=== PATIENT | female | born 1980 | race Caucasian/White ===

== ENCOUNTER 2018-02-26 00:12 | Emergency (ER) | payer BC ==
[~2018-02-26] VITALS: Ht 162.6 cm; Wt 77.1 kg
[~2018-02-26 00:12] MED LIST: DOXYCYCLINE 10100 MG PO; LEXAPRO 10 MG T10 M1; NABUMETONE 500500 M1; VERAPAMIL ER100 MG
[2018-02-26] MEDS ORDERED: CELEXA20 MG PO (00:21)
[2018-02-26] MEDS ORDERED: IBUPROFEN 800800 M1 PO (00:34)
[2018-02-26 02:17] VITALS: BP 127/71
== END 2018-02-26 02:18 | disposition home or self-care (01) ==
LOC: M.ERS 00:12
DX: M25.561 Pain in right knee (principal); M25.562 Pain in left knee; F32.9 Major depressive disorder, single episode, unspecified

== ENCOUNTER 2021-03-27 21:13 | Emergency (ER) | payer BC ==
[~2021-03-27] VITALS: Ht 162.6 cm; Wt 72.6 kg
[~2021-03-27 21:13] MED LIST changes: +CELEXA20 MG PO; +IBUPROFEN 800800 M1 PO
[2021-03-27 22:40] VITALS: BP 116/59
[2021-03-28] MEDS ORDERED: AUGMENTIN 875-1 EACH PO (16:03)
== END 2021-03-27 22:59 | disposition home or self-care (01) ==
LOC: M.ERS 21:13
DX: S51.851A Open bite of right forearm, initial encounter (principal); W54.0XXA Bitten by dog, initial encounter; Y93.89 Activity, other specified; Y92.89 Other specified places as the place of occurrence of the external cause; Y99.8 Other external cause status